=== PATIENT | female | born 1960 | race Caucasian/White ===

== ENCOUNTER 2021-03-30 12:54 | Inpatient (IN) | payer OTHER ==
[2021-04-10] MEDS ORDERED: Calcium Carbonate 500 MG ChewTAB PO PRN (17:33)
[2021-04-10] MEDS ORDERED: Bisacodyl 10 MG SUPP PR PRN (17:33)
[2021-04-10] MEDS ORDERED: Acetaminophen 500 MG TAB PO PRN (17:33)
[2021-04-10] MEDS ORDERED: Cepastat Lozenges 1 LOZ PO PRN (17:33)
[2021-04-10] MEDS ORDERED: Ondansetron PF 4 MG/2 ML Vial IVP PRN (17:33)
[2021-04-10] MEDS ORDERED: Promethazine HCl 25 MG SUPP PR PRN (17:33)
[2021-04-10] MEDS ORDERED: Loperamide HCl 2 MG CAP PO PRN ×2 (17:33)
[2021-04-10] MEDS ORDERED: Senokot S 8.6-50 MG TAB PO PRN (17:33)
[2021-04-10] MEDS ORDERED: Artificial Tear Sol 15 ML BOT EA EYE PRN (17:33)
[2021-04-10] MEDS ORDERED: Bisacodyl 5 MG TAB PO PRN (17:33)
[2021-04-10] MEDS ORDERED: Guaifenesin DM 100-10/5 ML UDCUP PO PRN (17:33)
[2021-04-10] MEDS: Ibuprofen 200 MG TAB PO PRN (19:57)
[2021-04-10] MEDS: Amlodipine 5 MG TAB PO SCH (19:59)
[2021-04-10] MEDS: Lorazepam 0.5 MG TAB PO SCH (19:59)
[2021-04-10] MEDS: Famotidine 20 MG TAB PO SCH (20:00)
[2021-04-10] MEDS: Atorvastatin Calcium 40 MG TAB PO SCH (20:00)
[2021-04-10] MEDS: Ondansetron ODT 4 MG TAB PO PRN (20:07)
[2021-04-11 06:37] LABS: #Basophils 0.1 thou/uL (0.0-0.2); #Eosinphils 0.3 thou/uL (0.0-0.7); #Lymphocytes 1.9 thou/uL (1.20-3.40); #Monocytes 0.8 thou/uL (0.11-0.59); #Neutrophils 4.9 thou/uL (1.40-6.50); %Basophils 1.6 % (0.0-1.0); %Lymphocytes 23.8 % (21.0-51.0); %Monocytes 9.7 % (0.0-10.0); Hemoglobin 10.2 g/dL (12.0-16.0); Mean Corpuscular HGB CONC 30.5 g/dL (32.0-36.0); Mean Corpuscular Hemoglobin 29.6 pg (27.0-31.0); Mean Corpuscular Volume 97.1 fL (78.0-98.0); Platelet Count 459 thou/uL (130-400); RBC Distribution Width 16.1 % (11.5-14.5); Red Blood Cell (RBC) Count 3.45 mill/uL (4.20-5.40)
[2021-04-11 06:48] LABS: Anion Gap 15 mmol/L (10-20); BUN (Urea Nitrogen) 13 mg/dL (9.8-20.1); Calc. Creatinine Clearance 122 mL/min (70-130); Calcium 9.2 mg/dL (7.8-10.44); Carbon Dioxide 22 mmol/L (22-29); Chloride 105 mmol/L (98-107); Glucose 98 mg/dL (70-105); Potassium 3.4 mmol/L (3.5-5.1); Sodium 139 mmol/L (136-145)
[2021-04-11] MEDS ORDERED: Potassium Chloride 20 MEQ TAB PO SCH (08:15)
[2021-04-11] MEDS: Amlodipine 5 MG TAB PO SCH ×2 (08:26→20:48)
[2021-04-11] MEDS: Ascorbic Acid 500 mg Chewable Tablet PO SCH (08:27)
[2021-04-11] MEDS: Lithium Carbonate 150 MG CAP PO SCH ×3 (08:27→16:58)
[2021-04-11] MEDS: Famotidine 20 MG TAB PO SCH ×2 (08:28→20:47)
[2021-04-11] MEDS: Enoxaparin Sodium 40 MG/0.4 ML SYRINGE SC SCH (08:28)
[2021-04-11] MEDS: Lorazepam 0.5 MG TAB PO SCH ×3 (08:29→20:47)
[2021-04-11] MEDS: PARoxetine 20 MG TAB PO SCH (08:29)
[2021-04-11] MEDS: Lurasidone 20 MG TABLET PO SCH (08:29)
[2021-04-11] MEDS: Ibuprofen 200 MG TAB PO PRN (16:58)
[2021-04-11] MEDS: Ondansetron ODT 4 MG TAB PO PRN (17:51)
[2021-04-11 19:36] LABS: SARS-CoV-2 PCR by NAA Not Detected (NotDetected)
[2021-04-11] MEDS: Atorvastatin Calcium 40 MG TAB PO SCH (20:48)
[2021-04-12] MEDS: Lithium Carbonate 150 MG CAP PO SCH ×3 (08:13→17:27)
[2021-04-12] MEDS: Amlodipine 5 MG TAB PO SCH ×2 (08:14→20:17)
[2021-04-12] MEDS: Ascorbic Acid 500 mg Chewable Tablet PO SCH (08:14)
[2021-04-12] MEDS: PARoxetine 20 MG TAB PO SCH (08:15)
[2021-04-12] MEDS: Lurasidone 20 MG TABLET PO SCH (08:15)
[2021-04-12] MEDS: Famotidine 20 MG TAB PO SCH ×2 (08:15→20:17)
[2021-04-12] MEDS: Enoxaparin Sodium 40 MG/0.4 ML SYRINGE SC SCH (08:15)
[2021-04-12] MEDS: Lorazepam 0.5 MG TAB PO SCH ×3 (08:15→20:16)
[2021-04-12] MEDS: Ibuprofen 200 MG TAB PO PRN ×3 (08:16→22:36)
[2021-04-12 08:25] LABS: Anion Gap 14 mmol/L (10-20); BUN (Urea Nitrogen) 10 mg/dL (9.8-20.1); Calc. Creatinine Clearance 122 mL/min (70-130); Calcium 9.3 mg/dL (7.8-10.44); Carbon Dioxide 27 mmol/L (22-29); Chloride 104 mmol/L (98-107); Glucose 103 mg/dL (70-105); Magnesium 2.1 mg/dL (1.6-2.6); Potassium 3.5 mmol/L (3.5-5.1); Sodium 141 mmol/L (136-145)
[2021-04-12] MEDS: Ondansetron ODT 4 MG TAB PO PRN (20:05)
[2021-04-12] MEDS: Atorvastatin Calcium 40 MG TAB PO SCH (20:17)
[2021-04-13] MEDS: Enoxaparin Sodium 40 MG/0.4 ML SYRINGE SC SCH (08:01)
[2021-04-13] MEDS: Amlodipine 5 MG TAB PO SCH ×2 (08:02→20:08)
[2021-04-13] MEDS: Lithium Carbonate 150 MG CAP PO SCH ×3 (08:02→17:12)
[2021-04-13] MEDS: Lurasidone 20 MG TABLET PO SCH (08:04)
[2021-04-13] MEDS: PARoxetine 20 MG TAB PO SCH (08:06)
[2021-04-13] MEDS: Lorazepam 0.5 MG TAB PO SCH ×3 (08:06→20:08)
[2021-04-13] MEDS: Famotidine 20 MG TAB PO SCH ×2 (08:06→20:07)
[2021-04-13] MEDS: Ascorbic Acid 500 mg Chewable Tablet PO SCH (08:07)
[2021-04-13] MEDS: Ibuprofen 200 MG TAB PO PRN (09:21)
[2021-04-13] MEDS ORDERED: Ibuprofen 200 MG TAB PO PRN (12:48)
[2021-04-13] MEDS: Atorvastatin Calcium 40 MG TAB PO SCH (20:08)
[2021-04-13] MEDS: Transdermal Patch Removal TOP SCH (20:10)
[2021-04-14] MEDS: Lithium Carbonate 150 MG CAP PO SCH ×3 (08:45→17:17)
[2021-04-14] MEDS: Famotidine 20 MG TAB PO SCH ×2 (08:45→20:14)
[2021-04-14] MEDS: Lurasidone 20 MG TABLET PO SCH (08:45)
[2021-04-14] MEDS: Enoxaparin Sodium 40 MG/0.4 ML SYRINGE SC SCH (08:45)
[2021-04-14] MEDS: Lorazepam 0.5 MG TAB PO SCH ×3 (08:46→20:14)
[2021-04-14] MEDS: Ascorbic Acid 500 mg Chewable Tablet PO SCH (08:46)
[2021-04-14] MEDS: PARoxetine 20 MG TAB PO SCH (08:46)
[2021-04-14] MEDS: Amlodipine 5 MG TAB PO SCH ×2 (08:46→20:14)
[2021-04-14] MEDS: Lidocaine 5% Patch TD SCH (08:47)
[2021-04-14] MEDS ORDERED: Lidocaine 5% Patch TD SCH (09:00)
[2021-04-14] MEDS: Acetaminophen/Codeine 30-300mg Tablet PO PRN (15:51)
[2021-04-14] MEDS: Ibuprofen 200 MG TAB PO PRN (17:16)
[2021-04-14] MEDS: Atorvastatin Calcium 40 MG TAB PO SCH (20:14)
[2021-04-14] MEDS: Transdermal Patch Removal TOP SCH (20:15)
[2021-04-15 06:13] LABS: #Basophils 0.1 thou/uL (0.0-0.2); #Eosinphils 0.4 thou/uL (0.0-0.7); #Lymphocytes 1.6 thou/uL (1.20-3.40); #Monocytes 0.9 thou/uL (0.11-0.59); #Neutrophils 4.2 thou/uL (1.40-6.50); %Basophils 1.2 % (0.0-1.0); %Eosinophils 5.7 % (0.0-10.0); %Lymphocytes 22.4 % (21.0-51.0); %Monocytes 12.7 % (0.0-10.0); Hemoglobin 9.2 g/dL (12.0-16.0); Mean Corpuscular HGB CONC 31.8 g/dL (32.0-36.0); Mean Corpuscular Hemoglobin 29.4 pg (27.0-31.0); Mean Corpuscular Volume 92.4 fL (78.0-98.0); Mean Platelet Volume 6.2 fL (7.4-10.4); Platelet Count 353 thou/uL (130-400); RBC Distribution Width 15.4 % (11.5-14.5); Red Blood Cell (RBC) Count 3.13 mill/uL (4.20-5.40); White Blood Cell (WBC) Count 7.2 thou/uL (4.8-10.8)
[2021-04-15 06:17] LABS: Anion Gap 11 mmol/L (10-20); BUN (Urea Nitrogen) 10 mg/dL (9.8-20.1); Calc. Creatinine Clearance 121 mL/min (70-130); Calcium 8.9 mg/dL (7.8-10.44); Carbon Dioxide 28 mmol/L (22-29); Chloride 105 mmol/L (98-107); Glucose 98 mg/dL (70-105); Potassium 3.4 mmol/L (3.5-5.1); Sodium 141 mmol/L (136-145)
[2021-04-15] MEDS: PARoxetine 20 MG TAB PO SCH (08:05)
[2021-04-15] MEDS: Ascorbic Acid 500 mg Chewable Tablet PO SCH (08:05)
[2021-04-15] MEDS: Famotidine 20 MG TAB PO SCH ×2 (08:06→20:39)
[2021-04-15] MEDS: Lurasidone 20 MG TABLET PO SCH (08:06)
[2021-04-15] MEDS: Amlodipine 5 MG TAB PO SCH ×2 (08:06→20:40)
[2021-04-15] MEDS: Lorazepam 0.5 MG TAB PO SCH ×3 (08:06→20:40)
[2021-04-15] MEDS: Lidocaine 5% Patch TD SCH (08:07)
[2021-04-15] MEDS: Lithium Carbonate 150 MG CAP PO SCH ×3 (08:07→17:39)
[2021-04-15] MEDS: Enoxaparin Sodium 40 MG/0.4 ML SYRINGE SC SCH (08:07)
[2021-04-15] MEDS: Ibuprofen 200 MG TAB PO PRN ×2 (11:17→20:38)
[2021-04-15] MEDS: Ondansetron ODT 4 MG TAB PO PRN (13:55)
[2021-04-15] MEDS: Acetaminophen/Codeine 30-300mg Tablet PO PRN (13:57)
[2021-04-15] MEDS: Atorvastatin Calcium 40 MG TAB PO SCH (20:40)
[2021-04-15] MEDS: Transdermal Patch Removal TOP SCH (20:40)
[2021-04-16] MEDS ORDERED: Famotidine 20 MG TAB ONE (08:53)
[2021-04-16] MEDS: Lurasidone 20 MG TABLET PO SCH (09:06)
[2021-04-16] MEDS: Lithium Carbonate 150 MG CAP PO SCH ×3 (09:06→17:17)
[2021-04-16] MEDS: Enoxaparin Sodium 40 MG/0.4 ML SYRINGE SC SCH (09:06)
[2021-04-16] MEDS: Lorazepam 0.5 MG TAB PO SCH ×3 (09:06→20:25)
[2021-04-16] MEDS: Ascorbic Acid 500 mg Chewable Tablet PO SCH (09:06)
[2021-04-16] MEDS: Amlodipine 5 MG TAB PO SCH ×2 (09:07→20:25)
[2021-04-16] MEDS: Famotidine 20 MG TAB PO SCH ×2 (09:07→20:26)
[2021-04-16] MEDS: Ibuprofen 200 MG TAB PO PRN ×3 (09:07→20:24)
[2021-04-16] MEDS: PARoxetine 20 MG TAB PO SCH (09:07)
[2021-04-16] MEDS: Lidocaine 5% Patch TD SCH (09:18)
[2021-04-16] MEDS: Acetaminophen/Codeine 30-300mg Tablet PO PRN (11:56)
[2021-04-16] MEDS: Atorvastatin Calcium 40 MG TAB PO SCH (20:26)
[2021-04-16] MEDS: Transdermal Patch Removal TOP SCH (20:29)
[2021-04-17 06:51] LABS: Anion Gap 13 mmol/L (10-20); BUN (Urea Nitrogen) 11 mg/dL (9.8-20.1); Calc. Creatinine Clearance 119 mL/min (70-130); Calcium 8.9 mg/dL (7.8-10.44); Carbon Dioxide 26 mmol/L (22-29); Chloride 108 mmol/L (98-107); Glucose 99 mg/dL (70-105); Potassium 3.6 mmol/L (3.5-5.1); Sodium 143 mmol/L (136-145)
[2021-04-17 07:00] LABS: #Basophils 0.1 thou/uL (0.0-0.2); #Eosinphils 0.4 thou/uL (0.0-0.7); #Lymphocytes 1.3 thou/uL (1.20-3.40); #Monocytes 0.8 thou/uL (0.11-0.59); #Neutrophils 5.7 thou/uL (1.40-6.50); %Basophils 1.4 % (0.0-1.0); %Eosinophils 4.5 % (0.0-10.0); %Lymphocytes 15.7 % (21.0-51.0); %Monocytes 9.4 % (0.0-10.0); %Neutrophils 69.1 % (42.0-75.0); Mean Corpuscular HGB CONC 30.6 g/dL (32.0-36.0); Mean Corpuscular Hemoglobin 29.2 pg (27.0-31.0); Mean Corpuscular Volume 95.3 fL (78.0-98.0); Mean Platelet Volume 6.7 fL (7.4-10.4); Platelet Count 307 thou/uL (130-400); RBC Distribution Width 15.4 % (11.5-14.5); Red Blood Cell (RBC) Count 3.43 mill/uL (4.20-5.40); White Blood Cell (WBC) Count 8.3 thou/uL (4.8-10.8)
[2021-04-17] MEDS: Famotidine 20 MG TAB PO SCH ×2 (08:48→20:10)
[2021-04-17] MEDS: Ascorbic Acid 500 mg Chewable Tablet PO SCH (08:48)
[2021-04-17] MEDS: Ibuprofen 200 MG TAB PO PRN ×3 (08:48→19:41)
[2021-04-17] MEDS: Lurasidone 20 MG TABLET PO SCH (08:49)
[2021-04-17] MEDS: Lithium Carbonate 150 MG CAP PO SCH ×3 (08:49→16:59)
[2021-04-17] MEDS: Lorazepam 0.5 MG TAB PO SCH ×3 (08:49→20:11)
[2021-04-17] MEDS: Amlodipine 5 MG TAB PO SCH ×2 (08:50→20:11)
[2021-04-17] MEDS: PARoxetine 20 MG TAB PO SCH (08:50)
[2021-04-17] MEDS: Enoxaparin Sodium 40 MG/0.4 ML SYRINGE SC SCH (08:50)
[2021-04-17] MEDS: Lidocaine 5% Patch TD SCH (08:51)
[2021-04-17] MEDS: Acetaminophen 500 MG TAB PO PRN ×2 (16:58→21:02)
[2021-04-17] MEDS: Atorvastatin Calcium 40 MG TAB PO SCH (20:12)
[2021-04-17] MEDS: Transdermal Patch Removal TOP SCH (20:17)
[2021-04-17] MEDS ORDERED: Lorazepam 0.5 MG TAB PO SCH (21:30)
[2021-04-18] MEDS: Ibuprofen 200 MG TAB PO PRN ×2 (06:08→20:05)
[2021-04-18] MEDS ORDERED: Lidocaine 5% Patch TD PRN (07:05)
[2021-04-18] MEDS: Lurasidone 20 MG TABLET PO SCH (08:15)
[2021-04-18] MEDS: Ascorbic Acid 500 mg Chewable Tablet PO SCH (08:16)
[2021-04-18] MEDS: Famotidine 20 MG TAB PO SCH ×2 (08:16→20:06)
[2021-04-18] MEDS: PARoxetine 20 MG TAB PO SCH (08:17)
[2021-04-18] MEDS: Lorazepam 0.5 MG TAB PO SCH ×3 (08:17→20:06)
[2021-04-18] MEDS: Amlodipine 5 MG TAB PO SCH ×2 (08:17→20:06)
[2021-04-18] MEDS: Lithium Carbonate 150 MG CAP PO SCH ×3 (08:17→17:58)
[2021-04-18] MEDS: Enoxaparin Sodium 40 MG/0.4 ML SYRINGE SC SCH (08:19)
[2021-04-18] MEDS ORDERED: Iopamidol 370 76% 100 ML VIAL ONE (09:00)
[2021-04-18] MEDS: Acetaminophen/Codeine 30-300mg Tablet PO PRN (10:15)
[2021-04-18 15:26] LABS: SARS-CoV-2 PCR by NAA Not Detected (NotDetected)
[2021-04-18] MEDS: Transdermal Patch Removal TOP SCH (19:18)
[2021-04-18] MEDS: Atorvastatin Calcium 40 MG TAB PO SCH (20:06)
[2021-04-19 06:47] LABS: #Basophils 0.1 thou/uL (0.0-0.2); #Eosinphils 0.4 thou/uL (0.0-0.7); #Lymphocytes 2.1 thou/uL (1.20-3.40); #Monocytes 0.8 thou/uL (0.11-0.59); #Neutrophils 7.8 thou/uL (1.40-6.50); %Eosinophils 3.7 % (0.0-10.0); %Lymphocytes 18.7 % (21.0-51.0); %Monocytes 6.8 % (0.0-10.0); %Neutrophils 69.7 % (42.0-75.0); Mean Corpuscular HGB CONC 30.9 g/dL (32.0-36.0); Mean Corpuscular Hemoglobin 29.6 pg (27.0-31.0); Mean Corpuscular Volume 95.8 fL (78.0-98.0); Mean Platelet Volume 6.7 fL (7.4-10.4); Platelet Count 304 thou/uL (130-400); RBC Distribution Width 15.9 % (11.5-14.5); Red Blood Cell (RBC) Count 3.72 mill/uL (4.20-5.40); White Blood Cell (WBC) Count 11.2 thou/uL (4.8-10.8)
[2021-04-19 06:48] LABS: Anion Gap 15 mmol/L (10-20); BUN (Urea Nitrogen) 12 mg/dL (9.8-20.1); Calc. Creatinine Clearance 113 mL/min (70-130); Calcium 9.2 mg/dL (7.8-10.44); Carbon Dioxide 22 mmol/L (22-29); Chloride 107 mmol/L (98-107); Glucose 108 mg/dL (70-105); Potassium 3.6 mmol/L (3.5-5.1); Sodium 140 mmol/L (136-145)
[2021-04-19] MEDS: Enoxaparin Sodium 40 MG/0.4 ML SYRINGE SC SCH (08:48)
[2021-04-19] MEDS: Lurasidone 20 MG TABLET PO SCH (08:49)
[2021-04-19] MEDS: Lorazepam 0.5 MG TAB PO SCH ×3 (08:49→21:06)
[2021-04-19] MEDS: Famotidine 20 MG TAB PO SCH ×2 (08:49→21:06)
[2021-04-19] MEDS: Ibuprofen 200 MG TAB PO PRN (08:50)
[2021-04-19] MEDS: PARoxetine 20 MG TAB PO SCH (08:51)
[2021-04-19] MEDS: Lithium Carbonate 150 MG CAP PO SCH ×3 (08:51→17:20)
[2021-04-19] MEDS: Amlodipine 5 MG TAB PO SCH ×2 (08:51→21:06)
[2021-04-19] MEDS: Sulfameth/Trimethoprim DS 800-160mg TAB PO SCH ×2 (08:52→21:06)
[2021-04-19] MEDS: Ascorbic Acid 500 mg Chewable Tablet PO SCH (08:52)
[2021-04-19] MEDS: Atorvastatin Calcium 40 MG TAB PO SCH (21:06)
[2021-04-19] MEDS: Transdermal Patch Removal TOP SCH (21:09)
[2021-04-20 06:27] LABS: Anion Gap 13 mmol/L (10-20); BUN (Urea Nitrogen) 10 mg/dL (9.8-20.1); Calc. Creatinine Clearance 123 mL/min (70-130); Calcium 8.8 mg/dL (7.8-10.44); Carbon Dioxide 22 mmol/L (22-29); Chloride 109 mmol/L (98-107); Glucose 98 mg/dL (70-105); Potassium 3.7 mmol/L (3.5-5.1); Sodium 140 mmol/L (136-145)
[2021-04-20 07:21] LABS: #Basophils 0.1 thou/uL (0.0-0.2); #Eosinphils 0.4 thou/uL (0.0-0.7); #Lymphocytes 1.6 thou/uL (1.20-3.40); #Monocytes 0.9 thou/uL (0.11-0.59); #Neutrophils 6.8 thou/uL (1.40-6.50); %Basophils 0.8 % (0.0-1.0); %Eosinophils 4.2 % (0.0-10.0); %Lymphocytes 16.5 % (21.0-51.0); %Monocytes 9.5 % (0.0-10.0); Hemoglobin 9.5 g/dL (12.0-16.0); Mean Corpuscular HGB CONC 30.9 g/dL (32.0-36.0); Mean Corpuscular Hemoglobin 28.6 pg (27.0-31.0); Mean Corpuscular Volume 92.6 fL (78.0-98.0); Mean Platelet Volume 6.8 fL (7.4-10.4); Platelet Count 283 thou/uL (130-400); RBC Distribution Width 14.9 % (11.5-14.5); Red Blood Cell (RBC) Count 3.31 mill/uL (4.20-5.40); White Blood Cell (WBC) Count 9.8 thou/uL (4.8-10.8)
[2021-04-20] MEDS: Enoxaparin Sodium 40 MG/0.4 ML SYRINGE SC SCH (08:31)
[2021-04-20] MEDS: Famotidine 20 MG TAB PO SCH ×2 (08:31→21:10)
[2021-04-20] MEDS: Lurasidone 20 MG TABLET PO SCH (08:31)
[2021-04-20] MEDS: Lithium Carbonate 150 MG CAP PO SCH ×3 (08:32→16:41)
[2021-04-20] MEDS: Sulfameth/Trimethoprim DS 800-160mg TAB PO SCH ×2 (08:32→21:10)
[2021-04-20] MEDS: PARoxetine 20 MG TAB PO SCH (08:32)
[2021-04-20] MEDS: Ascorbic Acid 500 mg Chewable Tablet PO SCH (08:32)
[2021-04-20] MEDS: Lorazepam 0.5 MG TAB PO SCH ×3 (08:33→21:10)
[2021-04-20] MEDS: Amlodipine 5 MG TAB PO SCH ×2 (08:33→21:10)
[2021-04-20] MEDS: Acetaminophen/Codeine 30-300mg Tablet PO PRN (08:49)
[2021-04-20] MEDS: Acetaminophen 500 MG TAB PO PRN (17:05)
[2021-04-20] MEDS: Atorvastatin Calcium 40 MG TAB PO SCH (21:10)
[2021-04-20] MEDS: Transdermal Patch Removal TOP SCH (21:11)
[2021-04-20] MEDS: Ibuprofen 200 MG TAB PO PRN (21:32)
[2021-04-21] MEDS: Lorazepam 0.5 MG TAB PO SCH ×3 (08:27→20:28)
[2021-04-21] MEDS: Enoxaparin Sodium 40 MG/0.4 ML SYRINGE SC SCH (08:28)
[2021-04-21] MEDS: Ascorbic Acid 500 mg Chewable Tablet PO SCH (08:32)
[2021-04-21] MEDS: Sulfameth/Trimethoprim DS 800-160mg TAB PO SCH ×2 (08:32→20:28)
[2021-04-21] MEDS: Amlodipine 5 MG TAB PO SCH ×2 (08:33→20:27)
[2021-04-21] MEDS: Lithium Carbonate 150 MG CAP PO SCH ×3 (08:33→17:13)
[2021-04-21] MEDS: Lurasidone 20 MG TABLET PO SCH (08:33)
[2021-04-21] MEDS: PARoxetine 20 MG TAB PO SCH (08:33)
[2021-04-21] MEDS: Famotidine 20 MG TAB PO SCH ×2 (08:34→20:28)
[2021-04-21] MEDS: Acetaminophen/Codeine 30-300mg Tablet PO PRN (08:41)
[2021-04-21 10:22] LABS: #Basophils 0.1 thou/uL (0.0-0.2); #Eosinphils 0.3 thou/uL (0.0-0.7); #Lymphocytes 1.2 thou/uL (1.20-3.40); #Monocytes 0.7 thou/uL (0.11-0.59); #Neutrophils 5.9 thou/uL (1.40-6.50); %Basophils 1.5 % (0.0-1.0); %Eosinophils 3.8 % (0.0-10.0); %Lymphocytes 14.9 % (21.0-51.0); %Monocytes 7.9 % (0.0-10.0); %Neutrophils 71.9 % (42.0-75.0); Hemoglobin 9.7 g/dL (12.0-16.0); Mean Corpuscular HGB CONC 30.6 g/dL (32.0-36.0); Mean Corpuscular Hemoglobin 28.6 pg (27.0-31.0); Mean Corpuscular Volume 93.4 fL (78.0-98.0); Mean Platelet Volume 6.4 fL (7.4-10.4); Platelet Count 263 thou/uL (130-400); RBC Distribution Width 14.9 % (11.5-14.5); Red Blood Cell (RBC) Count 3.41 mill/uL (4.20-5.40); White Blood Cell (WBC) Count 8.2 thou/uL (4.8-10.8)
[2021-04-21 10:46] LABS: Anion Gap 15 mmol/L (10-20); BUN (Urea Nitrogen) 11 mg/dL (9.8-20.1); Calc. Creatinine Clearance 96 mL/min (70-130); Calcium 8.5 mg/dL (7.8-10.44); Carbon Dioxide 20 mmol/L (22-29); Chloride 108 mmol/L (98-107); Glucose 197 mg/dL (70-105); Potassium 3.7 mmol/L (3.5-5.1); Sodium 139 mmol/L (136-145)
[2021-04-21] MEDS: Ibuprofen 200 MG TAB PO PRN (16:05)
[2021-04-21] MEDS: Atorvastatin Calcium 40 MG TAB PO SCH (20:27)
[2021-04-21] MEDS: Transdermal Patch Removal TOP SCH (20:32)
[2021-04-22 07:09] LABS: #Basophils 0.1 thou/uL (0.0-0.2); #Eosinphils 0.4 thou/uL (0.0-0.7); #Lymphocytes 2.1 thou/uL (1.20-3.40); #Monocytes 0.9 thou/uL (0.11-0.59); #Neutrophils 5.6 thou/uL (1.40-6.50); %Eosinophils 4.2 % (0.0-10.0); %Lymphocytes 23.3 % (21.0-51.0); %Monocytes 10.3 % (0.0-10.0); %Neutrophils 61.2 % (42.0-75.0); Hemoglobin 10.1 g/dL (12.0-16.0); Mean Corpuscular HGB CONC 30.9 g/dL (32.0-36.0); Mean Corpuscular Hemoglobin 28.4 pg (27.0-31.0); Mean Platelet Volume 6.6 fL (7.4-10.4); Platelet Count 276 thou/uL (130-400); RBC Distribution Width 14.8 % (11.5-14.5); Red Blood Cell (RBC) Count 3.55 mill/uL (4.20-5.40); White Blood Cell (WBC) Count 9.1 thou/uL (4.8-10.8)
[2021-04-22 07:10] LABS: Anion Gap 15 mmol/L (10-20); BUN (Urea Nitrogen) 12 mg/dL (9.8-20.1); Calc. Creatinine Clearance 108 mL/min (70-130); Carbon Dioxide 21 mmol/L (22-29); Chloride 107 mmol/L (98-107); Glucose 95 mg/dL (70-105); Potassium 3.6 mmol/L (3.5-5.1); Sodium 139 mmol/L (136-145)
[2021-04-22] MEDS: Lithium Carbonate 150 MG CAP PO SCH ×3 (08:55→17:36)
[2021-04-22] MEDS: Sulfameth/Trimethoprim DS 800-160mg TAB PO SCH ×2 (08:56→21:35)
[2021-04-22] MEDS: Famotidine 20 MG TAB PO SCH ×2 (08:57→21:36)
[2021-04-22] MEDS: Amlodipine 5 MG TAB PO SCH ×2 (08:58→21:36)
[2021-04-22] MEDS: Lorazepam 0.5 MG TAB PO SCH ×3 (08:58→21:36)
[2021-04-22] MEDS: Lurasidone 20 MG TABLET PO SCH (08:58)
[2021-04-22] MEDS: Enoxaparin Sodium 40 MG/0.4 ML SYRINGE SC SCH (08:59)
[2021-04-22] MEDS: Ascorbic Acid 500 mg Chewable Tablet PO SCH (08:59)
[2021-04-22] MEDS: PARoxetine 20 MG TAB PO SCH (09:00)
[2021-04-22] MEDS: Acetaminophen 500 MG TAB PO PRN (21:33)
[2021-04-22] MEDS: Atorvastatin Calcium 40 MG TAB PO SCH (21:36)
[2021-04-22] MEDS: Transdermal Patch Removal TOP SCH (21:43)
[2021-04-23] MEDS: Ascorbic Acid 500 mg Chewable Tablet PO SCH (07:59)
[2021-04-23] MEDS: Lorazepam 0.5 MG TAB PO SCH ×3 (08:01→21:00)
[2021-04-23] MEDS: Lurasidone 20 MG TABLET PO SCH (08:01)
[2021-04-23] MEDS: PARoxetine 20 MG TAB PO SCH (08:01)
[2021-04-23] MEDS: Lithium Carbonate 150 MG CAP PO SCH ×3 (08:01→17:47)
[2021-04-23] MEDS: Amlodipine 5 MG TAB PO SCH ×2 (08:01→20:59)
[2021-04-23] MEDS: Sulfameth/Trimethoprim DS 800-160mg TAB PO SCH ×2 (08:01→20:59)
[2021-04-23] MEDS: Famotidine 20 MG TAB PO SCH ×2 (08:02→20:59)
[2021-04-23] MEDS: Enoxaparin Sodium 40 MG/0.4 ML SYRINGE SC SCH (08:04)
[2021-04-23] MEDS: Acetaminophen/Codeine 30-300mg Tablet PO PRN (10:39)
[2021-04-23] MEDS: Atorvastatin Calcium 40 MG TAB PO SCH (20:59)
[2021-04-23] MEDS: Transdermal Patch Removal TOP SCH (21:00)
[2021-04-24] MEDS ORDERED: diphenhydrAMINE 25 MG CAP ONE (08:06)
[2021-04-24] MEDS ORDERED: diphenhydrAMINE 25 MG CAP PO SCH (08:15)
[2021-04-24] MEDS: Enoxaparin Sodium 40 MG/0.4 ML SYRINGE SC SCH (08:43)
[2021-04-24] MEDS: Lorazepam 0.5 MG TAB PO SCH ×3 (08:43→20:51)
[2021-04-24] MEDS: Lithium Carbonate 150 MG CAP PO SCH ×3 (08:44→17:38)
[2021-04-24] MEDS: Sulfameth/Trimethoprim DS 800-160mg TAB PO SCH ×2 (08:44→20:48)
[2021-04-24] MEDS: PARoxetine 20 MG TAB PO SCH (08:45)
[2021-04-24] MEDS: Lurasidone 20 MG TABLET PO SCH (08:45)
[2021-04-24] MEDS: Ascorbic Acid 500 mg Chewable Tablet PO SCH (08:45)
[2021-04-24] MEDS: Famotidine 20 MG TAB PO SCH ×2 (08:45→20:50)
[2021-04-24] MEDS: Amlodipine 5 MG TAB PO SCH ×2 (08:46→20:50)
[2021-04-24] MEDS ORDERED: Ondansetron ODT 4 MG TAB SL PRN (12:15)
[2021-04-24 13:44] VITALS: BMI 28.0
[2021-04-24] MEDS: Ibuprofen 800 MG TAB PO PRN (14:55)
[2021-04-24] MEDS: Atorvastatin Calcium 40 MG TAB PO SCH (20:50)
[2021-04-24] MEDS: Transdermal Patch Removal TOP SCH (20:53)
[2021-04-25] MEDS: Acetaminophen/Codeine 30-300mg Tablet PO PRN (09:31)
[2021-04-25] MEDS: Lurasidone 20 MG TABLET PO SCH (09:34)
[2021-04-25] MEDS: Ascorbic Acid 500 mg Chewable Tablet PO SCH (09:34)
[2021-04-25] MEDS: Famotidine 20 MG TAB PO SCH ×2 (09:34→20:06)
[2021-04-25] MEDS: Sulfameth/Trimethoprim DS 800-160mg TAB PO SCH ×2 (09:34→20:06)
[2021-04-25] MEDS: Lithium Carbonate 150 MG CAP PO SCH ×3 (09:34→17:40)
[2021-04-25] MEDS: PARoxetine 20 MG TAB PO SCH (09:35)
[2021-04-25] MEDS: Lorazepam 0.5 MG TAB PO SCH ×3 (09:35→20:06)
[2021-04-25] MEDS: Amlodipine 5 MG TAB PO SCH ×2 (09:35→20:05)
[2021-04-25] MEDS: Enoxaparin Sodium 40 MG/0.4 ML SYRINGE SC SCH (09:35)
[2021-04-25] MEDS: Atorvastatin Calcium 40 MG TAB PO SCH (20:06)
[2021-04-25] MEDS: Transdermal Patch Removal TOP SCH (20:07)
[2021-04-26 00:24] LABS: SARS-CoV-2 PCR by NAA Not Detected (NotDetected)
[2021-04-26] MEDS: Ibuprofen 800 MG TAB PO PRN (05:22)
[2021-04-26] MEDS: Lurasidone 20 MG TABLET PO SCH (08:50)
[2021-04-26] MEDS: PARoxetine 20 MG TAB PO SCH (08:50)
[2021-04-26] MEDS: Enoxaparin Sodium 40 MG/0.4 ML SYRINGE SC SCH (08:50)
[2021-04-26] MEDS: Amlodipine 5 MG TAB PO SCH ×2 (08:51→21:18)
[2021-04-26] MEDS: Lithium Carbonate 150 MG CAP PO SCH ×3 (08:51→15:53)
[2021-04-26] MEDS: Lorazepam 0.5 MG TAB PO SCH ×3 (08:51→21:19)
[2021-04-26] MEDS: Famotidine 20 MG TAB PO SCH ×2 (08:51→21:18)
[2021-04-26] MEDS: Ascorbic Acid 500 mg Chewable Tablet PO SCH (08:51)
[2021-04-26] MEDS: Acetaminophen/Codeine 30-300mg Tablet PO PRN (14:17)
[2021-04-26] MEDS: Atorvastatin Calcium 40 MG TAB PO SCH (21:18)
[2021-04-26] MEDS: Transdermal Patch Removal TOP SCH (21:22)
[2021-04-27] MEDS: Acetaminophen/Codeine 30-300mg Tablet PO PRN (07:28)
[2021-04-27] MEDS: Ascorbic Acid 500 mg Chewable Tablet PO SCH (08:15)
[2021-04-27] MEDS: Lorazepam 0.5 MG TAB PO SCH (08:15)
[2021-04-27] MEDS: Lurasidone 20 MG TABLET PO SCH (08:16)
[2021-04-27] MEDS: PARoxetine 20 MG TAB PO SCH (08:16)
[2021-04-27] MEDS: Famotidine 20 MG TAB PO SCH (08:16)
[2021-04-27] MEDS: Lithium Carbonate 150 MG CAP PO SCH ×2 (08:16→12:53)
[2021-04-27] MEDS: Amlodipine 5 MG TAB PO SCH (08:16)
[2021-04-27 08:17] VITALS: BP 117/72
[2021-04-27] MEDS: Enoxaparin Sodium 40 MG/0.4 ML SYRINGE SC SCH (08:17)
[2021-04-27 09:57] VITALS: TEMP 97.7
== END 2021-04-27 13:10 | disposition home or self-care (01) | DRG 948 ==
LOC: UNDOADMIN 04-10 15:05 → NAV ACUTE 04-10 15:05
PROVIDERS: ADMIT Family Medicine; ATTEND Family Medicine
DX: R53.1 Weakness (principal); G89.18 Other acute postprocedural pain; I10 Essential (primary) hypertension; F41.9 Anxiety disorder, unspecified; F32.A Depression, unspecified; D64.9 Anemia, unspecified; Z20.822 Contact with and (suspected) exposure to COVID-19; E87.6 Hypokalemia; E78.5 Hyperlipidemia, unspecified; E66.9 Obesity, unspecified; Z88.1 Allergy status to other antibiotic agents; Z88.8 Allergy status to other drugs, medicaments and biological substances; Z79.899 Other long term (current) drug therapy; Z98.51 Tubal ligation status; Z87.891 Personal history of nicotine dependence; Z68.21 Body mass index [BMI] 21.0-21.9, adult
CPT/HCPCS: 36415; 74177; 80048; 83735; 84145; 85025; 97602; J1650; Q0162; Q9967; U0003; U0005